=== PATIENT | male | born 1960 | race African-American/Black ===

== ENCOUNTER 2018-10-31 17:36 | Emergency (ER) | payer OTHER ==
[~2018-10-31] VITALS: Ht 185.4 cm; Wt 113.4 kg
[2018-10-31 18:37] LABS: Basophils # (auto) 0.1 uL; Basophils % (auto) 0.6 % (0.0-2.0); Eosinophils # (auto) 0.2 uL; Eosinophils % (auto) 1.8 % (0.0-7.0); Hematocrit 42.2 % (41.0-53.0); Hemoglobin 13.4 g/dL (13.5-17.5); Lymphocytes # (auto) 0.9 uL; Lymphocytes % (auto) 9.2 % (10.0-50.0); Mean Corpuscular Hemoglobin 28.3 pg (28.0-32.0); Mean Corpuscular Hgb Conc. 31.8 g/dL (32.0-36.0); Monocytes # (auto) 0.9 uL; Monocytes % (auto) 8.9 % (0.0-12.0); Neutrophils # (auto) 7.8 uL; Neutrophils % (auto) 79.5 % (37.0-80.0); Platelet Count (auto) 285 10^3/uL (140-450); Red Blood Cells 4.74 10^6/uL (4.5-5.90); Red Cell Distribution Width 12.9 % (11.8-14.3); White Blood Cell 9.8 10^3/uL (4.4-10.8)
[2018-10-31 18:57] LABS: Albumin 3.5 g/dL (3.4-5.0); Anion Gap 2 (5-15); Blood Urea Nitrogen 14 mg/dL (7-18); Calcium 8.5 mg/dL (8.5-10.1); Carbon Dioxide 30 mmol/L (21-32); Chloride 108 mmol/L (98-107); Glucose 98 mg/dL (74-106); Magnesium 2.5 mg/dL (1.6-2.6); Potassium 3.9 mmol/L (3.5-5.1); Sodium 140 mmol/L (136-145)
[2018-10-31 19:02] LABS: Alanine Aminotransferase 32 U/L (16-61); Alkaline Phosphatase 97 U/L (45-117); Aspartate Aminotransferase 30 U/L (15-37); BUN/Creatinine Ratio 7.6; Bilirubin, Total 0.6 mg/dL (0.2-1.0); GFR African American 49 mL/min; GFR Non-African American 41 mL/min
[2018-10-31 21:18] VITALS: BP 151/86
== END 2018-10-31 22:02 | disposition home or self-care (01) ==
LOC: ER 17:40
DX: I95.89 Other hypotension (principal); J44.9 Chronic obstructive pulmonary disease, unspecified
CPT/HCPCS: 36415; 70450; 71045; 80053; 83735; 84484; 85025

== ENCOUNTER 2021-04-21 01:55 | Emergency (ER) | payer MEDICAID, OTHER ==
[~2021-04-21] VITALS: Ht 182.9 cm; Wt 83.9 kg
[2021-04-21 03:39] LABS: Basophils # (auto) 0.1 10 ^3/uL (0-0.2); Basophils % (auto) 0.9 % (0.0-2.0); Eosinophils # (auto) 0 10 ^3/uL (0-0.8); Eosinophils % (auto) 0.2 % (0.0-7.0); Hematocrit 40.5 % (41.0-53.0); Hemoglobin 13.1 g/dL (13.5-17.5); Lymphocytes # (auto) 0.7 10 ^3/uL (0.4-5.4); Lymphocytes % (auto) 5.7 % (10.0-50.0); Mean Corpuscular Hemoglobin 28.8 pg (28.0-32.0); Mean Corpuscular Hgb Conc. 32.4 g/dL (32.0-36.0); Mean Corpuscular Volume 88.9 fL (80.0-100.0); Monocytes # (auto) 0.8 10 ^3/uL (0-1.3); Monocytes % (auto) 7.1 % (0.0-12.0); Neutrophils # (auto) 10.1 10 ^3/uL (1.6-8.6); Neutrophils % (auto) 86.1 % (37.0-80.0); Nucleated Red Blood Cells % 0.1 %; Red Blood Cells 4.56 10^6/uL (4.5-5.90); Red Cell Distribution Width 13.7 % (11.8-14.3); White Blood Cell 11.7 10^3/uL (4.4-10.8)
[2021-04-21 03:47] LABS: Albumin 3.5 g/dL (3.4-5.0); Calcium 8.5 mg/dL (8.5-10.1)
[2021-04-21 03:50] LABS: Bilirubin, Total 0.6 mg/dL (0.2-1.0); Total Protein 7.2 g/dL (6.4-8.2)
[2021-04-21 03:51] LABS: Potassium 3.7 mmol/L (3.5-5.1)
[2021-04-21 04:21] LABS: Urine Bacteria FEW /hpf (None Seen); Urine Blood 2+ /uL (Negative); Urine Hyaline Cast MOD /lpf (0 - 2); Urine Sperm PRESENT /hpf (None Seen); Urine WBC 9 /hpf (0 - 3)
[2021-04-21] MEDS ORDERED: cefTRIAXone 1GM/50ML D5W 50 ML IV ONE (04:30)
[2021-04-21] MEDS ORDERED: TETANUS-DIPTH-ACEL PERTUSSIS 0.5ML SYR Tdap IM ONE (04:30)
[2021-04-21] MEDS ORDERED: HYDROcodone-ACET 10/325MG TAB PO ONE (04:30)
[2021-04-21] MEDS ORDERED: KETOROLAC TROMETH 30 MG/ML 1ML VIAL IV ONE (04:30)
[2021-04-21 09:23] VITALS: BP 165/85
== END 2021-04-21 09:58 | disposition home or self-care (01) ==
LOC: EDBD 01:55 → ER 01:57
DX: S01.01XA Laceration without foreign body of scalp, initial encounter (principal); R31.9 Hematuria, unspecified; N28.9 Disorder of kidney and ureter, unspecified; R22.2 Localized swelling, mass and lump, trunk; J44.9 Chronic obstructive pulmonary disease, unspecified; I10 Essential (primary) hypertension; Y04.2XXA Assault by strike against or bumped into by another person, initial encounter; Y93.89 Activity, other specified; Y92.89 Other specified places as the place of occurrence of the external cause; Y99.8 Other external cause status
CPT/HCPCS: 36415; 70450; 71250; 72125; 74176; 80053; 81001; 85025; 90471; 90715; 93005; 96365; 96375; 99285; J0696; J1885

== ENCOUNTER 2022-06-19 07:06 | Emergency (ER) | payer MEDICAID ==
[~2022-06-19] VITALS: Ht 188 cm; Wt 117.2 kg
[2022-06-19] MEDS ORDERED: SODIUM CHLORIDE 0.9% 1,000 ML IV ONE (07:30)
[2022-06-19 07:56] LABS: Urine Bacteria NONE SEEN /hpf (None Seen); Urine WBC <1 /hpf (0 - 3)
[2022-06-19 08:12] LABS: Urine Blood Trace /uL (Negative); Urine Specific Gravity 1.015 (1.001-1.035)
[2022-06-19 08:25] LABS: Basophils # (auto) 0.1 10 ^3/uL (0-0.2); Basophils % (auto) 1.1 % (0.0-2.0); Eosinophils # (auto) 0.1 10 ^3/uL (0-0.8); Eosinophils % (auto) 2.3 % (0.0-7.0); Hematocrit 36.4 % (41.0-53.0); Hemoglobin 11.8 g/dL (13.5-17.5); Lymphocytes # (auto) 1.1 10 ^3/uL (0.4-5.4); Lymphocytes % (auto) 19.6 % (10.0-50.0); Mean Corpuscular Hgb Conc. 32.5 g/dL (32.0-36.0); Mean Corpuscular Volume 89.2 fL (80.0-100.0); Monocytes # (auto) 0.5 10 ^3/uL (0-1.3); Monocytes % (auto) 9.3 % (0.0-12.0); Neutrophils % (auto) 67.7 % (37.0-80.0); Nucleated Red Blood Cells % 0.1 %; Red Blood Cells 4.08 10^6/uL (4.5-5.90); Red Cell Distribution Width 13.4 % (11.8-14.3); White Blood Cell 5.9 10^3/uL (4.4-10.8)
[2022-06-19 09:48] LABS: Albumin 3.2 g/dL (3.4-5.0); Calcium 8.3 mg/dL (8.5-10.1); Potassium 4.4 mmol/L (3.5-5.1)
[2022-06-19 09:53] LABS: Bilirubin, Total 0.6 mg/dL (0.2-1.0); Total Protein 6.7 g/dL (6.4-8.2)
[2022-06-19] MEDS ORDERED: OLME20TA53 PO (10:58)
[2022-06-19] MEDS ORDERED: HYDR50TA15 PO (10:58)
[2022-06-19 11:30] VITALS: BP 147/87
== END 2022-06-19 11:35 | disposition home or self-care (01) ==
LOC: ER 07:06
DX: I13.0 Hypertensive heart and chronic kidney disease with heart failure and stage 1 through stage 4 chronic kidney disease, or unspecified chronic kidney disease (principal); N18.9 Chronic kidney disease, unspecified; I50.9 Heart failure, unspecified; J44.9 Chronic obstructive pulmonary disease, unspecified; F17.210 Nicotine dependence, cigarettes, uncomplicated
CPT/HCPCS: 36415; 71046; 80053; 81001; 83735; 84484; 85025; 93005

== ENCOUNTER 2022-08-15 08:50 | Day surgery (SDC) | payer MEDICAID ==
[2022-08-13 12:37] LABS: Basophils # (auto) 0 10 ^3/uL (0-0.2); Basophils % (auto) 0.7 % (0.0-2.0); Eosinophils # (auto) 0.3 10 ^3/uL (0-0.8); Eosinophils % (auto) 6.4 % (0.0-7.0); Hematocrit 38.3 % (41.0-53.0); Hemoglobin 12.5 g/dL (13.5-17.5); Lymphocytes # (auto) 1.4 10 ^3/uL (0.4-5.4); Lymphocytes % (auto) 26.2 % (10.0-50.0); Mean Corpuscular Hemoglobin 28.7 pg (28.0-32.0); Mean Corpuscular Hgb Conc. 32.6 g/dL (32.0-36.0); Mean Corpuscular Volume 87.9 fL (80.0-100.0); Monocytes # (auto) 0.6 10 ^3/uL (0-1.3); Monocytes % (auto) 10.6 % (0.0-12.0); Neutrophils % (auto) 56.1 % (37.0-80.0); Nucleated Red Blood Cells % 0.1 %; Red Blood Cells 4.36 10^6/uL (4.5-5.90); Red Cell Distribution Width 13.2 % (11.8-14.3); White Blood Cell 5.4 10^3/uL (4.4-10.8)
[2022-08-13 12:52] LABS: INR 0.88 (0.9-1.15); Partial Thromboplastin Time 26.6 sec (24.6-33.4)
[2022-08-13 13:02] LABS: Albumin 3.6 g/dL (3.4-5.0); BUN/Creatinine Ratio 11.5; Calcium 9.4 mg/dL (8.5-10.1); Potassium 4.9 mmol/L (3.5-5.1)
[2022-08-13 13:21] LABS: Bilirubin, Total 0.4 mg/dL (0.2-1.0); Total Protein 7.4 g/dL (6.4-8.2)
[~2022-08-15] VITALS: Ht 188 cm; Wt 113.4 kg
[~2022-08-15 08:50] MED LIST: CLON0.1T PO; FLUO20TA34 PO; IPRA0.00 IN; LISI-716 PO
[2022-08-15] MEDS ORDERED: SODIUM CHLORIDE LOCK 10 ML ONE (09:06)
[2022-08-15] MEDS ORDERED: diphenhdrAMINE HCL 50 MG/1 ML VL ONE (09:06)
[2022-08-15] MEDS ORDERED: fentaNYL CITRATE 100 MCG/2 ML VL ONE (09:06)
[2022-08-15] MEDS: MIDAZOLAM HCL 2MG/2ML 2ml VIAL (1mg/ml) ONE ×2 (10:00→10:05)
[2022-08-15 11:00] VITALS: BP 150/106
== END 2022-08-15 11:13 | disposition home or self-care (01) ==
LOC: GI 08:50
PROVIDERS: ATTEND Internal Medicine Gastroenterology
DX: Z12.11 Encounter for screening for malignant neoplasm of colon (principal); Z86.010 Personal history of colon polyps; K64.8 Other hemorrhoids; K63.5 Polyp of colon; I12.9 Hypertensive chronic kidney disease with stage 1 through stage 4 chronic kidney disease, or unspecified chronic kidney disease; N18.30 Chronic kidney disease, stage 3 unspecified; Z98.890 Other specified postprocedural states; Z79.899 Other long term (current) drug therapy; Z20.822 Contact with and (suspected) exposure to COVID-19
CPT/HCPCS: 36415; 45380; 80053; 85025; 85610; 85730; 88305; J1200; J2250; J3010; J7030; U0003; 99152; 99153

== ENCOUNTER 2025-07-23 08:34 | Inpatient (IN) | payer MEDICAID ==
[~2025-07-23] VITALS: Ht 188 cm; Wt 121.4 kg
[~2025-07-23 08:34] MED LIST changes: -FLUO20TA34 PO; +FLUO20TA42 PO; -LISI-716 PO; +LISI10TA34 PO
--- NOTE | 2025-07-23 09:43 | ED.PDOC ---
HPI Comments 65 y.o male with PMHX kidney failure, COPD, asthma, presents for a chief complaint of chest pain that woke him up from his sleep today. Patient reports recent illness including flu like symptom with the chest pain in which he was seen at [facility] one week ago for and was prescribed steroids. Patient discomfort that worsens with deep inspiration. Patient is on 4 liters of oxygen at home with CPAP use. Time Seen by MD: 12:08 Primary Care Provider: Anel Reviewed Notes: Nurses Notes, Medications, Allergies Allergies: Coded Allergies: NO KNOWN ALLERGIES (Unverified , 10/31/18) Home Meds Reported Medications Ipratropium-Albuterol (Ipratropium [place]/Albut) 1 Iveth Iveth, 1 IVETH IN QID, ML 08/13/22 Fluoxetine Hcl (Fluoxetine Hcl) 20 Mg Tab, 10 MG PO DAILY, TAB 08/13/22 Clonidine Hydrochloride (Clonidine Hcl) 0.1 Mg Tab, 0.1 MG PO TID, TAB 08/13/22 Lisinopril (Lisinopril) 10 Mg Tab, 10 MG PO, TAB 08/13/22 Information Source: Patient Mode of Arrival: Wheelchair Severity: Moderate Duration: Since onset Past Medical History PAST MEDICAL HISTORY: CHF, COPD, HTN Surgical History: Denies all surgeries Family History Family History: Unknown Social History Smoker: Cigarettes Alcohol: Denies ETOH Use Drugs: Denies Drug Use Lives In: Home Constitutional: denies: chills, diaphoresis, fatigue, fever, malaise, sweats, weakness, others EENTM: denies: blurred vision, double vision, ear bleeding, ear discharge, ear drainage, ear pain, ear ringing, eye pain, eye redness, hearing loss, mouth pain, mouth swelling, nasal discharge, nose bleeding, nose congestion, nose pain, photophobia, tearing, throat pain, throat swelling, voice changes, others Respiratory: denies: cough, hemoptysis, orthopnea, SOB at rest, shortness of breath, SOB with excertion, stridor, wheezing, others Cardiovascular: reports: chest pain; denies: dizzy spells, diaphoresis, Dyspnea on exertion, edema, irregular heart beat, left arm pain, lightheadedness, palpitations, PND, syncope, others Gastrointestinal: denies: abdomen distended, abdominal pain, blood streaked bowels, constipated, diarrhea, dysphagia, difficulty swallowing, hematemesis, melena, nausea, poor appetite, poor fluid intake, rectal bleeding, rectal pain, vomiting, others Genitourinary: denies: burning, dysuria, flank pain, frequency, hematuria, incontinence, penile discharge, penile sore, pain, testicle pain, testicle swelling, urgency, others Neurological: denies: dizziness, fainting, headache, left sided numbness, left sided weakness, numbness, paresthesia, pre-existing deficit, right sided numbness, right sided weakness, seizure, speech problems, tingling, tremors, weakness, others Musculoskeletal: denies: back pain, gout, joint pain, joint swelling, muscle pain, muscle stiffness, neck pain, others Integumetry: denies: bruises, change in color, change in hair/nails, dryness, laceration, lesions, lumps, rash, wounds, others Allergic/Immunocompromised: denies: Difficulty Healing, Frequent Infections, Hives, Itching, others Hematologic/Lymphatic: denies: anemia, blood clots, easy bleeding, easy bruising, swollen glands, others Endocrine: denies: excessive hunger, excessive sweating, excessive thirst, excessive urination, flushing, intolerance to cold, intolerance to heat, unexplained weight gain, unexplained weight loss, others Psychiatric: denies: anxiety, bipolar disorder, depression, hopeless, panic disorder, schizophrenia, sleepless, suicidal, others All Other Systems: Reviewed and Negative Physical Exam General Appearance: No Apparent Distress, Normal HEENT: Normal ENT Inspection, Pharynx Normal, TMs Normal Neck: Full Range of Motion, Non-Tender, Normal, Normal Inspection Respiratory: Chest Non-Tender, Lungs Clear, No Accessory Muscle Use, No Respiratory Distress, Normal Breath Sounds, Other (Diminished breath sounds bilaterally wheezing to the right lung base) Cardiovascular: No Edema, No JVD, No Murmur, No Gallop, Normal Peripheral Pulses, Regular Rate/Rhythm Breast Exam: Deferred Gastrointestinal: No Organomegaly, Non Tender, No Pulsatile Mass, Normal Bowel Sounds, Soft Genitalia: Deferred Pelvic: Deferred Rectal: Deferred Extremities: No calf tenderness, Normal capillary refill, Normal inspection, Normal range of motion, Non-tender, Swelling, Other (+1 pitting edema bilateral lower extremity) Musculoskeletal : Apperance: Normal Neurologic: Alert, No Motor Deficits, Normal Affect, Normal Mood, No Sensory Deficits Cerebellar Function: Normal Reflexes: Normal Skin: Dry, Normal Color, Warm Lymphatic: No Adenopathy EKG EKG #1: Comments EKG 1. At 8:46 a.m.. Sinus rhythm [address] changes EKG #2: Comments EKG 2. At 9:40 a.m. rate of 58 sinus rhythm no significant ST changes EKG #3: Comments EKG 3. At 11:37 a.m.. Fifty-three sinus rhythm no significant ST changes. Unchanged from previous Was a procedure done? Was a procedure done?: No CP Differential Dx Differential Diagnosis: N/A Differential Diagnosis: Angina, Chest Wall Pain, Costochondritis, Pericarditis, Pneumonia, Pulmonary Embolus X-Ray, Labs, Meds, VS Vital Signs Date Time Temp Pulse Resp B/P (MAP) Pulse Ox O2 Delivery O2 Flow Rate FiO2 07/23/25 12:14 18 95 Nasal Cannula* 2 28 07/23/25 11:37 53 07/23/25 11:16 97.6 55 15 132/68 (89) 96 97.6 07/23/25 09:40 58 07/23/25 08:46 55 Lab Test 07/23/25 11:04 07/23/25 10:00 07/23/25 08:40 Range/Units Urine Color Colorless Yellow Urine Clarity Clear Clear Urine pH 5.0 5.0-9.0 Urine Specific Lynn 1.005 1.001-1.035 Urine Protein Negative Negative Urine Ketones Negative Negative Urine Blood Negative Negative /uL Urine Nitrite Negative Negative Urine Bilirubin Negative Negative Urine Urobilinogen Normal Negative mg/dL Urine Leukocyte Esterase Negative Negative /uL Urine RBC <1 0 - 3 /hpf Urine Microscopic WBC < 1 0-3 /HPF Urine Squamous Epithelial Cells None seen <5 /hpf Urine Bacteria None seen None Seen /hpf Urine Glucose Normal Normal mg/dL Troponin I High Sensitivity 12 13 </=54 ng/L White Blood Count 8.4 4.4-10.8 10^3/uL Red Blood Count 3.99 L 4.5-5.90 10^6/uL Hemoglobin 11.1 L 13.5-17.5 g/dL Hematocrit 35.1 L 41.0-53.0 % Mean Corpuscular Volume 88.0 80.0-100.0 fL Mean Corpuscular Hemoglobin 27.9 L 28.0-32.0 pg Mean Corpuscular Hemoglobin Concent 31.7 L 32.0-36.0 g/dL Red Cell Distribution Width 13.6 11.8-14.3 % Platelet Count 289 140-450 10^3/uL Mean Platelet Volume 8.0 6.9-10.8 fL Neutrophils (%) (Auto) 70.1 37.0-80.0 % Lymphocytes (%) (Auto) 17.0 10.0-50.0 % Monocytes (%) (Auto) 7.4 0.0-12.0 % Eosinophils (%) (Auto) 4.5 0.0-7.0 % Basophils (%) (Auto) 1.0 0.0-2.0 % Neutrophils # (Auto) 5.9 1.6-8.6 10 ^3/uL Lymphocytes # (Auto) 1.4 0.4-5.4 10 ^3/uL Monocytes # (Auto) 0.6 0-1.3 10 ^3/uL Eosinophils # (Auto) 0.4 0-0.8 10 ^3/uL Basophils # (Auto) 0.1 0-0.2 10 ^3/uL Nucleated Red Blood Cells 0.0 % Sodium Level 145 136-145 mmol/L Potassium Level 4.3 3.5-5.1 mmol/L Chloride Level 108 H 98-107 mmol/L Carbon Dioxide Level 28 20-31 mmol/L Anion Gap 9 5-15 Blood Urea Nitrogen 18 9-23 mg/dL Creatinine 2.59 H 0.700-1.30 mg/dL Glomerular Filtration Rate Calc 27 >90 mL/min BUN/Creatinine Ratio 6.9 L 10.0-20.0 Serum Glucose 113 H 74-106 mg/dL Calcium Level 9.9 8.7-10.4 mg/dL Current Medications Medications (Trade) Dose Ordered Sig/Sophia Route Start Time Stop Time Status Last Admin Albuterol (Ventolin Medneb) 5 mg ONCE ONCE NEB 07/23/25 11:45 07/23/25 11:48 DC 07/23/25 12:10 Ipratropium [place] (Atrovent Medneb) 0.5 mg ONCE ONCE NEB 07/23/25 11:45 07/23/25 11:48 DC 07/23/25 12:10 65-year-old male presents here with difficulty breathing. Patient states he was at [facility] last week for same reason he was having chest pain difficulty breathing. He states was given steroids and treatment and was discharged. He states however he has not been feeling well continues to He does have a med she home he has been using but not helping. He states he is having chest discomfort pain with deep breathing denies any fever or chills. States he has continues to have a significant cough. is concerned that if they go home he will return as he has not been doing breathing. On exam he does have trace pitting edema bilateral extremities and wheezing on my examination. I have given him breathing treatments in the ER including albuterol and ipratropium as well as dexamethasone. I have ordered a CBC BMP and troponin ekg and a BNP. CBC BMP largely within normal limits. He does have elevated creatinine with a creatinine of 2.59 patient does endorse having stage 4 kidney disease. Troponin is negative. Chest x-ray is also negative. EKG x3 has been evaluated by myself which did not demonstrate any significant ST changes. BNP is ordered and is pending. At this time I am concerned about COPD exacerbation and possible new onset CHF given his new leg swelling to bilateral extremities. At this time hospitalist team has been contacted for admission. X-Ray, Labs, Meds, VS Comment [place] [address] Ph: [phone] DIAGNOSTIC IMAGING Diagnostic Imaging Report : [id number] Signed PATIENT: SKYE POND ACCT: [id number] UNIT: [id number] : 1960 LOC: ER ROOM / BED: / AGE / SEX: 65 / M ADM STATUS: REG ER SERVICE [id number] ORDERING PHYSICIAN: ZACHARY CAMARENA MD PROCEDURE(s): CXR2 - CHEST TWO VIEWS ROUTINE REASON: Chest pain ORDER NUMBER(s): [id number], ACCESSION NUMBER(s): [id number] CLINICAL INFORMATION: Chest pain. TECHNIQUE: Frontal and lateral chest radiographs were obtained. COMPARISON: XR CHEST 2 VIEWS on DOS: 07/05/25, XR CHEST 2 VIEWS on DOS: 11/10/23, CXR2 on DOS: 06/19/22 FINDINGS: Lungs: Clear. Cardiac: Heart size is within normal limits. Pulmonary vasculature: Unremarkable Mediastinum/bambi: Within normal limits. Bones: No evidence of acute osseous abnormality. Other: No other significant finding. IMPRESSION: No evidence of acute disease in the chest. ATED BY: DONAVAN GAO DO DICTATED DATE/TIME: 07/23/25 1010 SIGNED BY: DONAVAN GAO DO SIGNED DATE/TIME: 07/23/25 1010 CC: Time of 1ST Reevaluation: 12:40 Reevaluation 1ST: Unchanged Patient Education/Counseling: Diagnosis, Treatment, Prognosis Family Education/Counseling: Diagnosis, Treatment, Prognosis SEPSIS Sepsis Screen Physician Orders Electrocardigram (07/23/25 09:43) Chest Two Views Routine (07/23/25 09:43) Troponin-I Hs (07/23/25 12:43) Electrocardigram (07/23/25 10:43) Electrocardigram (07/23/25 12:43) B-Type Natriuretic Peptide (07/23/25 12:24) Vital Signs Date Time Temp Pulse Resp B/P (MAP) Pulse Ox O2 Delivery O2 Flow Rate FiO2 07/23/25 12:14 18 95 Nasal Cannula* 2 28 07/23/25 11:37 53 07/23/25 11:16 97.6 55 15 132/68 (89) 96 97.6 07/23/25 09:40 58 07/23/25 08:46 55 Laboratory Tests Test 07/23/25 08:40 White Blood Count 8.4 10^3/uL (4.4-10.8) Medications Medications Dose Ordered Sig/Sophia Route Start Time Stop Time Status Last Admin Dose Admin Albuterol 5 mg ONCE ONCE NEB 07/23/25 11:45 07/23/25 11:48 DC 07/23/25 12:10 Ipratropium [place] 0.5 mg ONCE ONCE NEB 07/23/25 11:45 07/23/25 11:48 DC 07/23/25 12:10 Departure 1 Departure Time of Disposition: 12:40 Impression: Primary Impression: COPD exacerbation Additional Impressions: Pleuritic chest pain Leg swelling Disposition: ADMITTED INPATIENT Condition: Fair Critical Care Note Critical Care Time?: No Stability Stability form required: No Heart Score Heart Score: Heart Score Response (Comments) Value History Slightly Suspicious 0 EKG Normal 0 Age 45-64 1 Risk Factors 1 or 2 risk factors 1 Troponin Normal limit 0 Total 2 I personally scribed for ZACHARY CAMARENA MD ([email or web address]) on 07/23/25 at 11:06. Electronically submitted by Elisabet Prince ([facility]). I personally scribed for ZACHARY CAMARENA MD ([email or web address]) on 07/23/25 at 12:26. Electronically submitted by Elisabet Prince ([facility] ZACHARY CAMARENA MD Jul 23, 2025 09:42
--- NOTE | 2025-07-23 10:13 | DVH ---
CLINICAL INFORMATION: Chest pain. TECHNIQUE: Frontal and lateral chest radiographs were obtained. COMPARISON: XR CHEST 2 VIEWS on DOS: 07/05/25, XR CHEST 2 VIEWS on DOS: 11/10/23, CXR2 on DOS: 06/19/22 FINDINGS: Lungs: Clear. Cardiac: Heart size is within normal limits. Pulmonary vasculature: Unremarkable Mediastinum/bambi: Within normal limits. Bones: No evidence of acute osseous abnormality. Other: No other significant finding. IMPRESSION: No evidence of acute disease in the chest.
[2025-07-23 10:16] LABS: Hematocrit 35.1 % (41.0-53.0); Hemoglobin 11.1 g/dL (13.5-17.5); Mean Corpuscular Hemoglobin 27.9 pg (28.0-32.0); Mean Corpuscular Volume 88.0 fL (80.0-100.0); Nucleated Red Blood Cells % 0.0 %
[2025-07-23 10:27] LABS: Potassium 4.3 mmol/L (3.5-5.1)
[2025-07-23 10:28] LABS: Anion Gap 9 (5-15); Calcium 9.9 mg/dL (8.7-10.4); Carbon Dioxide 28 mmol/L (20-31); Chloride 108 mmol/L (98-107); Sodium 145 mmol/L (136-145)
[2025-07-23 10:33] LABS: BUN/Creatinine Ratio 6.9 (10.0-20.0); Blood Urea Nitrogen 18 mg/dL (9-23)
[2025-07-23 10:34] LABS: Glucose 113 mg/dL (74-106)
[2025-07-23 11:28] LABS: Urine Protein, UAD Negative (Negative)
[2025-07-23] MEDS: IPRATROPIUM BROM 0.5 MG/2.5ML INH SOL NEB ONE (12:10)
[2025-07-23] MEDS: ALBUTEROL SULF 2.5 MG/0.5ML(0.5%) NEB SOLN NEB ONE (12:10)
--- NOTE | 2025-07-23 13:21 | DVHHPRES ---
History of Present Illness Resident Creating Document: ALTON SHAFFER RESIDENT History of Present Illness Avni Samaniego, a 65-year-old current smoker male with history of CKD stage IIIb/IV, CHF, dyslipidemia, COPD/asthma, allergic rhinitis, Internal hemorrhoids, and HTN presents with acute chest pain that woke him from sleep today. He reports a recent flu-like illness associated with the chest discomfort and was evaluated at [facility] one week ago, where he was prescribed steroids. He describes pleuritic features with pain worsening on deep inspiration. He uses 4 L home oxygen and CPAP at baseline and arrived to the ED by wheelchair. Denies previous history of cardiac angina or any relevant workup. PMHx: Nicotine abuse 40+ years, CKD stage IIIb/IV, CHF, dyslipidemia, ROBERTA on CPAP, Chronic hypoxic respiratory failure on Home oxygen, COPD/asthma, allergic rhinitis, Internal hemorrhoids, and HTN PSHx: Denies Family history: Family history of HTN, DM, CAD otherwise noncontributory to the hospitalization. Social history: Current smoker 40+ smoking history, rarely occasional EtOH, denies other recreation drug use. Lives at home, ADL dependent on wheelchair and home oxygen. Medications: Clonidine, Hydralazine, Amlodipine, Losartan, Simvastatin, Duloxetine, Advair 250/50 Diskus, Albuterol sulfate, Ipratropium, Matzim LA (diltiazem) 360 mg, Vitamin D 50,000 unit cap, Docusate, Feosol. 325. Review of Systems Constitutional: Yes: Fever (subjective), Chills, Malaise; No: Sweats, Weakness, Other Eyes: No: Pain, Vision change, Conjunctivae inflammation, Eyelid inflammation, Other, Redness ENT: No: Ear pain, Ear discharge, Nose pain, Nose discharge, Nose congestion, Mouth pain, Mouth swelling, Throat pain, Throat swelling, Other Respiratory: Cough, Shortness of breath, SOB with excertion, Pleuritic Pain, Sputum (yellow ), Wheezing; No: Dry, Wheezing, Hemoptysis, Other Cardiovascular: Chest Pain, Edema; No: Palpitations, Orthopnea, Paroxysmal Noc. Dyspnea, Lt Headedness, Other Gastrointestinal: Constipation; No: Nausea, Vomiting, Abdominal Pain, Diarrhea, Melena, Hematochezia, Other Genitourinary: No Dysuria, No Frequency, No Incontinence, No Hematuria, No Re tention, No Other Musculoskeletal: No: other, neck pain, shoulder pain, arm pain, back pain, hand pain, leg pain, foot pain Skin: No: Rash, Lesions, Jaundice, Bruising, Other Neurological: No: Weakness, Numbness, Incoordination, Change in speech, Confusion, Seizures, Other Allergies: Coded Allergies: NO KNOWN ALLERGIES (Unverified , 10/31/18) Exam Vital Signs Vital Signs Date Time Temp Pulse Resp B/P (MAP) Pulse Ox O2 Delivery O2 Flow Rate FiO2 07/23/25 12:47 98.0 59 20 130/75 93 98.0 07/23/25 12:14 Nasal Cannula* 2 28 General Appearance: Alert, Oriented X3, Cooperative, mild distress HEENT: Atraumatic, PERRLA, EOMI, Mucous membr. moist/pink Respiratory: Other (prolonged expiration, no wheezing but basal rales present. chest pain somewaht reproducible, typical pleuritic with deep inspiration. ) Cardiovascular: Regular rate, Normal S1, Normal S2, No murmurs Abdominal: Normal bowel sounds, Soft, No tenderness, No hepatospenomegaly, Other (bloated) Extremities: No clubbing, No cyanosis, Normal pulses, Other (b/l 1+Pitting edema, patient complains same since diagnosed with advanced kidney disease ) Skin: No rashes, No breakdown, No significant lesion Neuro: Normal speech, Strength at 5/5 X4 ext, Normal tone, Sensation intact, Cranial nerves 3-12 NL Psych/Mental Status: Mental status NL, Mood NL Labs/Xrays Labs Test 07/23/25 11:04 07/23/25 10:00 07/23/25 08:40 Range/Units Urine Color Colorless Yellow Urine Clarity Clear Clear Urine pH 5.0 5.0-9.0 Urine Specific [place] 1.005 1.001-1.035 Urine Protein Negative Negative Urine Ketones Negative Negative Urine Blood Negative Negative /uL Urine Nitrite Negative Negative Urine Bilirubin Negative Negative Urine Urobilinogen Normal Negative mg/dL Urine Leukocyte Esterase Negative Negative /uL Urine RBC <1 0 - 3 /hpf Urine Microscopic WBC < 1 0-3 /HPF Urine Squamous Epithelial Cells None seen <5 /hpf Urine Bacteria None seen None Seen /hpf Urine Glucose Normal Normal mg/dL Troponin I High Sensitivity 12 </=54 ng/L White Blood Count 8.4 4.4-10.8 10^3/uL Red Blood Count 3.99 L 4.5-5.90 10^6/uL Hemoglobin 11.1 L 13.5-17.5 g/dL Hematocrit 35.1 L 41.0-53.0 % Mean Corpuscular Volume 88.0 80.0-100.0 fL Mean Corpuscular Hemoglobin 27.9 L 28.0-32.0 pg Mean Corpuscular Hemoglobin Concent 31.7 L 32.0-36.0 g/dL Red Cell Distribution Width 13.6 11.8-14.3 % Platelet Count 289 140-450 10^3/uL Mean Platelet Volume 8.0 6.9-10.8 fL Neutrophils (%) (Auto) 70.1 37.0-80.0 % Lymphocytes (%) (Auto) 17.0 10.0-50.0 % Monocytes (%) (Auto) 7.4 0.0-12.0 % Eosinophils (%) (Auto) 4.5 0.0-7.0 % Basophils (%) (Auto) 1.0 0.0-2.0 % Neutrophils # (Auto) 5.9 1.6-8.6 10 ^3/uL Lymphocytes # (Auto) 1.4 0.4-5.4 10 ^3/uL Monocytes # (Auto) 0.6 0-1.3 10 ^3/uL Eosinophils # (Auto) 0.4 0-0.8 10 ^3/uL Basophils # (Auto) 0.1 0-0.2 10 ^3/uL Nucleated Red Blood Cells 0.0 % Sodium Level 145 136-145 mmol/L Potassium Level 4.3 3.5-5.1 mmol/L Chloride Level 108 H 98-107 mmol/L Carbon Dioxide Level 28 20-31 mmol/L Anion Gap 9 5-15 Blood Urea Nitrogen 18 9-23 mg/dL Creatinine 2.59 H 0.700-1.30 mg/dL Glomerular Filtration Rate Calc 27 >90 mL/min BUN/Creatinine Ratio 6.9 L 10.0-20.0 Serum Glucose 113 H 74-106 mg/dL Calcium Level 9.9 8.7-10.4 mg/dL SEPSIS Sepsis Screen Date sepsis recognized/suspect: Jul 23, 2025 Time Sepsis recognized/suspect: 08 Recent Procedure: No On Antibiotic Therapy: No Respiratory Rate >20: No Heart Rate >90: No Temp<36 C (96.8 F) or >38.3 C: No SBP <90 or MAP <65 mmHG: No New Acute Mental Status Change: No Is the patient on CPAP, BIPAP,: No Physician Orders Electrocardigram (07/23/25 09:43) Chest Two Views Routine (07/23/25 09:43) Troponin-I Hs (07/23/25 12:43) Electrocardigram (07/23/25 10:43) Electrocardigram (07/23/25 12:43) B-Type Natriuretic Peptide (07/23/25 12:24) Admit (07/23/25 13:18) Allergies (07/23/25 13:18) Code Status (07/23/25 13:18) Oxygen Per Hour (07/23/25 13:18) Hydrocodone-Acet 5/325mg Tab (Orange 5/32 (07/23/25 13:30) Docusate Sodium Capsule (Colace Capsule) (07/23/25 13:30) Complete Blood Count (07/24/25 04:00) Comprehensive Metabolic Panel (07/24/25 04:00) Npo (Nothing By Mouth) Diet (07/23/25 Lunch) Pt Request For Service (07/23/25 13:18) * Swallow Request (07/23/25 13:18) Echo 2d Mode Cardiac Dop (07/23/25 13:18) Condition: Serious (07/23/25 13:18) Acetaminophen Tablet (Tylenol Tablet) (07/23/25 13:30) Bedrest With Bathroom Privileg (07/23/25 13:18) Morphine Sulfate Injection (07/23/25 13:30) Nitroglycerin Sublingual (Ntrostat Subli (07/23/25 13:30) Morphine Sulfate Injection (07/23/25 13:30) Oxygen By Nasal Cannula (07/23/25 13:18) Stat Ekg For Chest Pain (07/23/25 13:18) Notify Md Of Changes From Base (07/23/25 13:18) Dessert Cup Machine Feeder For 24 Hours (07/23/25 13:18) Emergency Dysrhythmia Protocol (07/23/25 13:18) Rhythm Strips Once Every Shift (07/23/25 13:18) Vital Signs Date Time Temp Pulse Resp B/P (MAP) Pulse Ox O2 Delivery O2 Flow Rate FiO2 07/23/25 12:47 98.0 59 20 130/75 93 98.0 07/23/25 12:14 18 95 Nasal Cannula* 2 28 07/23/25 11:37 53 07/23/25 11:16 97.6 55 15 132/68 (89) 96 97.6 07/23/25 09:40 58 07/23/25 08:46 55 Laboratory Tests Test 07/23/25 08:40 White Blood Count 8.4 10^3/uL (4.4-10.8) Medications Medications Dose Ordered Sig/Sophia Route Start Time Stop Time Status Last Admin Dose Admin Albuterol 5 mg ONCE ONCE NEB 07/23/25 11:45 07/23/25 11:48 DC 07/23/25 12:10 5 MG Ipratropium [place] 0.5 mg ONCE ONCE NEB 07/23/25 11:45 07/23/25 11:48 DC 07/23/25 12:10 0.5 MG Assessment/Plan Assessment/Plan Acute medical conditions on Presentation: #acute chest pain concerning for unstable angina: trops, EKG unremarkable STEMI / NSTEMI ruled out. pleurisy, PE, aortic dissection to rule out. Echo to check. #Acute on chronic hypoxic respiratory failure: Likely due to COPD and CHF exacerbation. 4L at presentation, wean as tolerated, SPO2 around 92% #Likely COPD exacerbation: Viral vs infectious trigger, check secondary causers, scheduled nebs. Sputum culture and other infectious causes to evaluate. #Community acquired pneumonia: gram +ve/-ve/atypical, could be viral or superimposed to viral, sputum culture, trend cbc. viral panel to check. antib iotics coverage CXR non specific. Other chronic conditions treated: #Nicotine abuse 40+ years, active smoker: >11 minute smoking cessation counseling completed. Nicotine patch 14mg continue. #CKD stage IIIb/IV: Avoid nephrotoxins, patient reports urine output, close intake output check. #CHF, HFpEF: BNP , IV diuresis and Echo to check. mildly hypervolumic. #dyslipidemia: on simvastatin continue outpatient [facility]. #ROBERTA on CPAP: use at night as per RT. #Chronic hypoxic respiratory failure on Home oxygen, upto 2-3 liters at [facility]. #known COPD/asthma: Advair 250/50 Diskus, Albuterol sulfate, Ipratropium, home medications. continue nebs. #allergic rhinitis: home nasal sprays can continue at discharge, as needed nasal spray. #Internal hemorrhoids: previously noted in Colonoscopy, avoid constipation, docu sate, high fiber diet. #Essential HTN: Clonidine, Hydralazine, Amlodipine, Losartan, target blood pressure 140/90. restart medications when necessary. #Peripheral neuropathy: Duloxetine, as needed multimodal pain management. Avoid NSAIDs. #Chronic vitamin D deficiency: Vitamin D 50,000 unit cap, weekly continue. #Chronic iron deficiency: continue Feosol. 325 at discharge, use more fibers, laxatives. #Grade I obesity: BMI 33.7, weight loss and lifestyle/dietary counseling done. PUD prophylaxis: protonix 40mg daily DVT prophylaxis: Lovenox 40mg/brisk movement. Barriers to discharge: Medical diagnosis and management in progress. PT and SW consult as needed. PCP: Dr. Dillard Specialist Relevant To Admission: Nephrology (Follows Dr. Pro), will consult if urine output scanty <0.5ml/kg/hour. Case discussed with Dr. Hassan. Code Status: Full Code. Discussion for goals of care and care plan needed total 29 minutes bedside. Patient agreed to the in hospital treatment at telemetry floor. Plan discussed with: Patient, Other (family) My Orders Orders - ALTON SHAFFER RESIDENT Procedure Category Date Status Time Admit ADMIT 07/23/25 Transmitted 13:18 Allergies BHARATH 07/23/25 Transmitted 13:18 Code Status CODE 07/23/25 Transmitted 13:18 Oxygen Per Hour RT 07/23/25 Transmitted 13:18 Hydrocodone-Acet PHA 07/23/25 Transmitted 5/325mg Tab (Orange 13:30 Docusate Sodium PHA 07/23/25 Transmitted Capsule (Colace 13:30 Complete Blood Count LAB 07/24/25 Verified 04:00 Comprehensive LAB 07/24/25 Verified Metabolic Panel 04:00 Npo (Nothing By DIET 07/23/25 Transmitted Mouth) Diet Lunch Pt Request For Service PT 07/23/25 Transmitted 13:18 * Swallow Request ST 07/23/25 Transmitted 13:18 Echo 2d Mode Cardiac US 07/23/25 Transmitted DOP 13:18 Condition: Serious [facility] 07/23/25 Transmitted 13:18 Acetaminophen Tablet [facility] 07/23/25 Transmitted (Tylenol Tablet) 13:30 Bedrest With Bathroom [facility] 07/23/25 Transmitted Privileg 13:18 Morphine Sulfate [facility] 07/23/25 Transmitted Injection 13:30 Nitroglycerin [facility] 07/23/25 Transmitted Sublingual (Ntrostat 13:30 Morphine Sulfate [facility] 07/23/25 Transmitted Injection 13:30 Oxygen By Nasal RT 07/23/25 Transmitted Cannula 13:18 Stat Ekg For Chest [facility] 07/23/25 Transmitted Pain 13:18 Notify Md Of Changes [facility] 07/23/25 Transmitted From Base 13:18 Dessert Cup Machine Feeder For [facility] 07/23/25 Transmitted 24 Hours 13:18 Emergency Dysrhythmia [facility] 07/23/25 Transmitted Protocol 13:18 Rhythm Strips Once [facility] 07/23/25 Transmitted Every Shift 13:18 Date of Service: Jul 23, 2025 Billing Provider: TAWANDA HASSAN MD Common Visit Codes: [id number] INP/OBS CARE (HIGH) Secondary Visit Codes: [id number] CARE PLAN 30 MINUTES ALTON SHAFFER RESIDENT Jul 23, 2025 13:21
[2025-07-23] MEDS ORDERED: NITROGLYCERIN 0.4 MG SL TAB SL PRN (13:30)
[2025-07-23] MEDS ORDERED: DOCUSATE SOD 100 MG CAP PO PRN (13:30)
[2025-07-23] MEDS ORDERED: MORPHINE SULFATE INJ 2 MG/ml SYRG IV PRN (13:30)
[2025-07-23] MEDS: MORPHINE SULFATE INJ 2 MG/ml SYRG IV PRN (19:43)
[2025-07-23 20:00] VITALS: PULSE 70
[2025-07-23] MEDS: MORPHINE SULFATE 4 MG/ML SYR/VIAL ONE (20:24)
[2025-07-23] MEDS: ONDANSETRON HCL 4 MG/2 ML VIAL ONE (20:25)
[2025-07-23] MEDS: HYDROcodone-ACET 5/325MG TAB PO PRN (21:16)
[2025-07-23] MEDS: ACETAMINOPHEN 325 MG TAB PO PRN (21:16)
[2025-07-24] VITALS (20 sets, daily range): BP systolic 113–161; BP diastolic 73–98; PULSE 58–131; RESP 16–26; TEMP 97.3–98.9; O2SAT 90–100
[2025-07-24] MEDS ORDERED: DOCU-265 PO (03:26)
[2025-07-24] MEDS ORDERED: LOSA-535 PO (03:26)
[2025-07-24] MEDS ORDERED: AMLO1TAB23 PO (03:26)
[2025-07-24] MEDS ORDERED: SIMV40TA18 PO (03:26)
[2025-07-24] MEDS ORDERED: HYDR50TA47 PO (03:26)
[2025-07-24] MEDS ORDERED: ERGO1CAP12 PO (03:26)
[2025-07-24] MEDS: IPRATROPIUM BROM 0.5 MG/2.5ML INH SOL ONE (04:09)
[2025-07-24] MEDS: ALBUTEROL SULF 2.5 MG/0.5ML(0.5%) NEB SOLN ONE (04:10)
[2025-07-24] MEDS ORDERED: IPRATROPIUM BROM 0.5 MG/2.5ML INH SOL NEB PRN (04:15)
[2025-07-24] MEDS ORDERED: ALBUTEROL SULF 2.5 MG/0.5ML(0.5%) NEB SOLN NEB PRN (04:15)
[2025-07-24] MEDS: IPRATROPIUM BROM 0.5 MG/2.5ML INH SOL NEB SCH (07:20)
[2025-07-24] MEDS: LEVALBUTEROL HCL 1.25 MG/3 ML NEB NEB SCH (07:20)
[2025-07-24 07:21] LABS: Hematocrit 34.6 % (41.0-53.0); Hemoglobin 10.8 g/dL (13.5-17.5); Mean Corpuscular Hemoglobin 27.5 pg (28.0-32.0); Mean Corpuscular Volume 88.4 fL (80.0-100.0); Nucleated Red Blood Cells % 0.0 %
[2025-07-24 07:26] LABS: Alanine Aminotransferase 20 U/L (7-40); Albumin 4.4 g/dL (3.2-4.8); Alkaline Phosphatase 102 U/L (46-116); Anion Gap 7 (5-15); BUN/Creatinine Ratio 7.4 (10.0-20.0); Bilirubin, Total 0.3 mg/dL (0.2-1.0); Blood Urea Nitrogen 19 mg/dL (9-23); Calcium 9.2 mg/dL (8.7-10.4); Carbon Dioxide 26 mmol/L (20-31); Sodium 141 mmol/L (136-145); Total Protein 7.3 g/dL (5.7-8.2)
[2025-07-24 07:30] LABS: Chloride 108 mmol/L (98-107); Glucose 127 mg/dL (74-106)
[2025-07-24 07:31] LABS: Total Iron Binding Capacity 271.0 ug/dL (250-425)
[2025-07-24 07:32] LABS: Iron 36.0 ug/dL (65-175); Potassium 5.9 mmol/L (3.5-5.1)
[2025-07-24] MEDS: InsuLIN REG 1unit/0.01ml Soln (100units/ml) IV ONE ×2 (08:15→08:59)
[2025-07-24] MEDS: SODIUM ZIRCONIUM CYCL 10 GM PAK PO ONE ×2 (08:15→08:46)
[2025-07-24] MEDS: DEXTROSE (50%) 50ML SYRG IV ONE ×2 (08:15→08:46)
[2025-07-24] MEDS: predniSONE 20 MG TAB PO SCH (08:31)
[2025-07-24] MEDS: AZITHROMYCIN 500MG/250ML 250 ML IV SCH (08:31)
[2025-07-24] MEDS: FUROSEMIDE 40 MG/4 ML VIAL IV SCH (08:38)
[2025-07-24] MEDS: ALBUTEROL SULF 2.5 MG/0.5ML(0.5%) NEB SOLN NEB ONE (08:40)
[2025-07-24] MEDS: SODIUM BICARB 8.4% 50Meq/50ml SYR INJ IV ONE (09:28)
[2025-07-24] MEDS: NICOTINE 14 MG/24HR TOPICAL PATCH TD ONE (10:15)
[2025-07-24] MEDS ORDERED: POM (10:36)
[2025-07-24] MEDS ORDERED: [UNRECOGNIZED DRUG - CODE] PO (10:36)
[2025-07-24] MEDS ORDERED: CHOL20007 PO (10:36)
--- NOTE | 2025-07-24 12:11 | DVHSR ---
APPROVED REPORT EXAM: Two-dimensional and M-mode echocardiogram with Doppler and color Doppler. Blood Pressure: 155/93 mmHg INDICATION Rule out structural heart disease RISK FACTORS Obesity: Height: 6'2", Weight: 262 DIMENSIONS LVDd 5.1 (3.8-5.7cm) LA (2D) 4.4 (1.9-4.0cm) Aortic Root 4.2 (2.0-3.7cm) LVDs 3.1 (2.5-4.0cm) LA (MM) (1.9-4.0cm) Aortic Cusp Exc 2.2 (1.5-2.0cm) EF (%) 69.0 (55-70%) Rt. Atrium 4.0 (1.9-4.0cm) Asc. Aorta cm IVSd 1.3 (0.7-1.1cm) RV (D) 3.9 (1.8-2.4cm) PWd 1.3 (0.7-1.1cm) Mitral Valve Mitral Mitral Stenosis E wave 1.17m/s MV Mean GR. mmHg A wave 1.25m/s MV Peak GR. mmHg E/A ratio 0.9 2D MVA cm2 DECEL Time 185ms PRESS 1/2 Time ms Aortic Valve Aortic Valve Aortic Stenosis V1 1.53m/s AO Mean GR. 11mmHg V2 2.26m/s AO Peak GR. 20mmHg LVOT Diameter 2.3 (1.8-2.4cm) Doppler DEACON 2.81cm2 Other Information Technically limited study due to body habitus. Conclusion 1)Hyperdynamic left ventricular systolic function with estimated ejection fraction>70%. 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 Suggest a cardiac MRI for further evaluation if clinically indicated 2)Normal right ventricle size and function 3)Biatrial dilatation 4)Mild mitral regurgitation 5)Mildly dilated aortic root with estimated diameter of 4.2 cm
--- NOTE | 2025-07-24 12:14 | DVHPNRES ---
Progress Note Date Seen: Jul 24, 2025 Resident Creating Document: TASHA GOODE RESIDENT Medical Necessity Reason Pt with a Central, PICC or Fol: No Subjective Review of Systems Patient is a 65-year-old male with past medical history of polycystic kidney disease, CKD stage 4, COPD/asthma who uses 4 L oxygen at home, hypertension, CHF, obstructive sleep apnea on CPAP, allergic rhinitis, internal hemorrhoids who came to the hospital with chief complaints of chest pain which was 10/10 in intensity, substernal, intermittent , nonradiating, states that increased with walking and decreased with rest, which woke him up from sleep yesterday. patient also describes pleuritic features with the pain worsening on deep inspiration. Patient also states he had recent flu-like illness with chest discomfort and was seen in [facility] 1 week ago where he was prescribed steroids. He denies any previous cardiac exam, cardiology workup. surgical history: Denies Family history: Family history of hypertension, diabetes, [place], heart failure, PSKD in family personal history: Patient states his last cigarette was 2 weeks ago and smoked 1 pack per day since 20 years. , occasional alcohol drinker, denies other drug use. Lives with: Zakiya PCP: Dr. Dillard Nephrology: Follows Dr. Pro Medications: Clonidine, Hydralazine, Amlodipine, Losartan, Simvastatin, Duloxetine, Advair 250/50 Diskus, Albuterol sulfate, Ipratropium, Matzim LA (diltiazem) 360 mg, Vitamin D 50,000 unit cap, Docusate, Feosol. 325. 07/24/2025: Patient seen at bedside. Patient is on 2 L oxygen, does not complain of any chest pain, shortness of the, palpitations, nausea, vomiting, fever, chills. Patient did complain of chest pain in the morning for which EKG was done and did not show any changes. Patient states the pain is coming and going. And patient has discomfort in the right flank. Patient might be having hyperkalemia due to BAO/ARb. so stopped. Patient also complaining of right flank pain for which abdominal CT without contrast ordered. Objective vital signs Vital Sign Date Time Temp Pulse Resp B/P (MAP) Pulse Ox O2 Delivery O2 Flow Rate FiO2 07/24/25 11:39 88 16 99 07/24/25 11:31 Nasal Cannula 2.0 12/7/25 11:31 28 07/24/25 09:00 98.9 130/86 (101) 98.9 medications Current Medications Medications Dose Ordered Sig/Sophia Route Start Time Stop Time Status Last Admin Dose Admin Acetaminophen/ Hydrocodone Bitart 1 tab Q4HP PRN PO 07/23/25 13:30 07/23/25 21:16 1 TAB Docusate Sodium 100 mg BIDPRN PRN PO 07/23/25 13:30 Acetaminophen 650 mg Q6HP PRN PO 07/23/25 13:30 07/23/25 21:16 650 MG Morphine Sulfate 2 mg Q4HPRN PRN IV 07/23/25 13:30 07/23/25 19:43 2 MG Nitroglycerin 0.4 mg Q5MINP PRN SL 07/23/25 13:30 Morphine Sulfate 2 mg Q30M PRN IV 07/23/25 13:30 Ipratropium [place] 0.5 mg Q4HPRN PRN NEB 07/24/25 04:15 Levalbuterol HCl 1.25 mg Q6HR NEB 07/24/25 06:00 07/24/25 11:31 1.25 MG Ipratropium [place] 0.5 mg Q6HR NEB 07/24/25 06:00 07/24/25 11:31 0.5 MG Prednisone 40 mg DAILY PO 07/24/25 10:00 07/24/25 08:31 40 MG Furosemide 40 mg DAILY IV 07/24/25 10:00 07/24/25 08:38 40 MG Azithromycin 250 ml @ 125 mls/hr DAILY IV 07/24/25 10:00 07/24/25 08:31 125 MLS/HR Nicotine 1 patch DAILY TD 07/25/25 10:00 Enoxaparin Sodium 40 mg DAILY SC 07/24/25 10:15 Pantoprazole Sodium 40 mg DAILY@0600 PO 07/25/25 06:00 Examination General: Patient alert and oriented in person, place and time. Patient following commands. HEENT: Normocephalic, atraumatic, moist mucous membranes Respiratory/pulmonary: pleuritic chest pain with deep inspiration Cardiovascular: Normal heart sounds S1 and S2 with no associated murmurs Abdomen: Right flank pain Extremities: There is no peripheral edema present at the lower extremities. Peripheral Pulses: 3+ Radial (R). 3+ Radial (L). 3+ Dorsalis pedis (R). 3+ Dorsalis pedis(L) Skin: No rashes or pruritus, there is no sacral edema present at this time. Neurological: Intact cranial nerves with no focal neurologic deficits laboratory and microbiology Laboratory Tests 07/24/25 05:47 Test 07/24/25 05:47 Range/Units Serum Glucose 127 H 74-106 mg/dL Problem List/Assessment/Plan Problem List/Assessment/Plan #Acute chest pain likely unstable angina - trops negative - EKG unremarkable - Echo ordered, showed Hyperdynamic left ventricular systolic function with estimated ejection fraction>70%. There is a LV hypertrophy - cardiology consult #Acute on chronic hypoxic respiratory failure: #Likely COPD exacerbation: #Community acquired pneumonia likely Gram-positive, Gram-negative - Likely due to COPD and CHF exacerbation. - albuterol, ipratropium med nebs - oxygen as needed - COVID, influenza - sputum culture, - IV azithromycin, - prednisone 40 mg p.o. daily # Polycystic kidney disease # CKD stage IIIB/IV - resume home meds - strict I&O - avoid nephrotoxic drugs # ROBERTA on CPAP # history of COPD /asthma - CPAP at night - albuterol, ipratropium med nebs # hypertension - resume home meds # iron-deficiency anemia - continue home meds # nicotine abuse disorder - patient counseled on cessation of smoking for 18 minutes #Grade I obesity BMI 33.7 - patient counseled on diet, exercise, lifestyle modifications for 18 minutes PPI prophylaxis: Protonix DVT prophylaxis: Lovenox Goals of care addressed with the patient for more than 27 minutes: Full code status Case discussed with Dr. Ceron , patient and nurse Plan discussed with: Patient Visit Coding STANDARD RES Billing Provider: ESPERANZA CERON MD Date of Service if different f: Jul 24, 2025 Common Visit Codes: [id number] INP/OBS CARE(HIGH) TASHA GOODE RESIDENT Jul 24, 2025 12:14
[2025-07-24 13:11] LABS: COVID19 ANTIGEN SOFIA FIA NEGATIVE (NEGATIVE)
--- NOTE | 2025-07-24 13:30 | ECG ---
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
--- NOTE | 2025-07-24 13:31 | ECG ---
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
--- NOTE | 2025-07-24 13:31 | ECG ---
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
[2025-07-24] MEDS: PANTOPRAZOLE 40 MG TAB PO ONE (14:51)
[2025-07-24] MEDS: ENOXAPARIN SOD 40 MG/0.4 ML SYRINGE SC SCH (14:52)
[2025-07-24] MEDS ORDERED: NITROGLYCERIN 0.4 MG SL TAB SL PRN (16:00)
[2025-07-24] MEDS ORDERED: ENOXAPARIN SOD 40 MG/0.4 ML SYRINGE SC ONE (16:00)
[2025-07-24] MEDS: ATORVASTATIN 20 MG TAB PO SCH (21:13)
[2025-07-25] VITALS (18 sets, daily range): BP systolic 140–151; BP diastolic 84–91; PULSE 67–105; RESP 16–20; TEMP 97.4–98.6; O2SAT 90–99
[2025-07-25] MEDS: PANTOPRAZOLE 40 MG TAB PO SCH (05:15)
[2025-07-25 06:01] LABS: Hematocrit 30.4 % (41.0-53.0); Hemoglobin 9.7 g/dL (13.5-17.5); Mean Corpuscular Hemoglobin 28.0 pg (28.0-32.0); Mean Corpuscular Volume 87.8 fL (80.0-100.0); Nucleated Red Blood Cells % 0.0 %
[2025-07-25 06:17] LABS: Alanine Aminotransferase 18 U/L (7-40); Alkaline Phosphatase 83 U/L (46-116); Anion Gap 8 (5-15); BUN/Creatinine Ratio 11.5 (10.0-20.0); Calcium 8.8 mg/dL (8.7-10.4); Carbon Dioxide 28 mmol/L (20-31); Chloride 106 mmol/L (98-107); Potassium 4.7 mmol/L (3.5-5.1); Sodium 142 mmol/L (136-145)
[2025-07-25 06:18] LABS: Blood Urea Nitrogen 28 mg/dL (9-23); Glucose 115 mg/dL (74-106); Total Protein 6.6 g/dL (5.7-8.2)
[2025-07-25 06:19] LABS: Albumin 3.9 g/dL (3.2-4.8); Bilirubin, Total 0.3 mg/dL (0.2-1.0)
--- NOTE | 2025-07-25 06:40 | ECG ---
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
[2025-07-25] MEDS: CHOLECALCIFEROL (VITD3) 1,000UNIT=25mCg TAB PO SCH (09:59)
[2025-07-25] MEDS ORDERED: LOSARTAN POTASSIUM 50 MG TAB PO SCH (10:00)
[2025-07-25] MEDS ORDERED: ENOXAPARIN SOD 40 MG/0.4 ML SYRINGE SC SCH (10:00)
[2025-07-25] MEDS: NICOTINE 14 MG/24HR TOPICAL PATCH TD SCH (10:00)
--- NOTE | 2025-07-25 11:02 | DVH ---
Exam: CT CT AB PEL WO CON-NO ORAL OR IV History: r/o renal stones. Pain. Comparison Study: CT ABDOMEN PELVIS WITHOUT on DOS: 11/10/23, CT ABD PELVIS WO CONTRAST on DOS: 08/16/22, CT CHEST ABD PELVIS WO CONTRAS on DOS: 04/21/21 Technique: Multidetector spiral CT of the abdomen was performed from lung bases to pubic symphysis. Imaging was performed without IV contrast. Axial, coronal and sagittal multiplanar reformats were obtained from the axial data set by the technologist. Radiation Dose : 1. Abdomen/Pelvis: CTDIvol 26.09 mGy, DLP 1617.87 mGy*cm. Findings: Evaluation of solid organs is limited due to lack of intravenous contrast use. Lung Bases: No acute or significant lung base finding. Normal heart size. No pleural or pericardial effusion. Liver: The liver is normal in size. No focal lesions. Gallbladder and Biliary Tree: Unremarkable Spleen: Unremarkable Pancreas: The pancreas is grossly normal in appearance. Adrenal Glands: Unremarkable Kidneys: Bilateral renal cortical cysts. No stones. Left ureter is mildly dilated with no obstructing calculus seen. This appears unchanged. Bladder: Grossly unremarkable for degree of distention. Bowel: The stomach is grossly normal in appearance. Small bowel and colon are normal in caliber and distribution. The appendix is not visualized; however, no secondary findings of acute appendicitis identified. Ascites: Absent Lymphadenopathy: No mesenteric, retroperitoneal or periportal lymphadenopathy. Abdominal Wall and Mesentery: Unremarkable. Vasculature: The visualized abdominal aorta is normal in size and caliber. Evaluation of abdominal and pelvic vessels is limited due to lack of intravenous contrast. Pelvic Organs: Unremarkable Musculoskeletal: No aggressive focal bony lesions, acute fractures or dislocation. IMPRESSION: Stable mild prominence of the left ureter with no obstructing stone or other lesion seen. Radiation optimization: All CT scans at this facility use at least one of these dose optimization techniques: automated exposure control mA and/or kV adjustment per patient size (includes targeted exams where dose is matched to clinical indication) or iterative reconstruction.
--- NOTE | 2025-07-25 14:58 | DVHPNRES ---
Progress Note Date Seen: Jul 25, 2025 Resident Creating Document: TASHA GOODE RESIDENT Medical Necessity Reason Pt with a Central, PICC or Fol: No Subjective Review of Systems Patient is a 65-year-old male with past medical history of polycystic kidney disease, CKD stage 4, COPD/asthma who uses 4 L oxygen at home, hypertension, CHF, obstructive sleep apnea on CPAP, allergic rhinitis, internal hemorrhoids who came to the hospital with chief complaints of chest pain which was 10/10 in intensity, substernal, intermittent , nonradiating, states that increased with walking and decreased with rest, which woke him up from sleep yesterday. patient also describes pleuritic features with the pain worsening on deep inspiration. Patient also states he had recent flu-like illness with chest discomfort and was seen in [facility] 1 week ago where he was prescribed steroids. He denies any previous cardiac exam, cardiology workup. surgical history: Denies Family history: Family history of hypertension, diabetes, [place], heart failure, PSKD in family personal history: Patient states his last cigarette was 2 weeks ago and smoked 1 pack per day since 20 years. , occasional alcohol drinker, denies other drug use. Lives with: Zakiya PCP: Dr. Dillard Nephrology: Follows Dr. Pro Medications: Clonidine, Hydralazine, Amlodipine, Losartan, Simvastatin, Duloxetine, Advair 250/50 Diskus, Albuterol sulfate, Ipratropium, Matzim LA (diltiazem) 360 mg, Vitamin D 50,000 unit cap, Docusate, Feosol. 325. 07/24/2025: Patient seen at bedside. Patient is on 2 L oxygen, does not complain of any chest pain, shortness of the, palpitations, nausea, vomiting, fever, chills. Patient did complain of chest pain in the morning for which EKG was done and did not show any changes. Patient states the pain is coming and going. And patient has discomfort in the right flank. Patient might be having hyperkalemia due to BAO/ARb. so stopped. Patient also complaining of right flank pain for which abdominal CT without contrast ordered. 07/25/2025: Patient seen at bedside. Patient is on 2 L oxygen, denies any chest pain, shortness of breath, nausea, vomiting, chills fever, chills. CT abdomen showed Stable mild prominence of the left ureter with no obstructing stone or other lesion seen. patient does not complain of chest pain with inspiration. Objective vital signs Vital Sign Date Time Temp Pulse Resp B/P (MAP) Pulse Ox O2 Delivery O2 Flow Rate FiO2 07/25/25 13:00 97.4 71 18 146/90 (108) 95 97.4 07/25/25 11:28 Nasal Cannula 2.0 07/25/25 11:28 28 Total Intake and Output 07/24/25 07/24/25 07/25/25 15:00 23:00 07:00 Intake Total 250 ml 300 ml 50 ml Balance 250 ml 300 ml 50 ml medications Current Medications Medications Dose Ordered Sig/Sophia Route Start Time Stop Time Status Last Admin Dose Admin Acetaminophen/ Hydrocodone Bitart 1 tab Q4HP PRN PO 07/23/25 13:30 07/25/25 10:09 1 TAB Acetaminophen 650 mg Q6HP PRN PO 07/23/25 13:30 07/23/25 21:16 650 MG Levalbuterol HCl 1.25 mg Q6HR NEB 07/24/25 06:00 07/25/25 11:28 1.25 MG Ipratropium [place] 0.5 mg Q6HR NEB 07/24/25 06:00 07/25/25 11:28 0.5 MG Prednisone 40 mg DAILY PO 07/24/25 10:00 07/25/25 09:59 40 MG Furosemide 40 mg DAILY IV 07/24/25 10:00 07/25/25 10:00 40 MG Nicotine 1 patch DAILY TD 07/25/25 10:00 Enoxaparin Sodium 40 mg DAILY SC 07/24/25 10:15 07/25/25 10:01 40 MG Pantoprazole Sodium 40 mg DAILY@0600 PO 07/25/25 06:00 07/25/25 05:15 40 MG Amlodipine Besylate 10 mg DAILY PO 07/25/25 10:00 07/25/25 09:59 10 MG Atorvastatin Calcium 40 mg HS PO 07/24/25 22:00 07/24/25 21:13 40 MG Nitroglycerin 0.4 mg Q5MINP PRN SL 07/24/25 16:00 Azithromycin 500 mg DAILY PO 07/26/25 10:00 Patient Own Medication 1 BID@0700,1500 PO 07/25/25 15:00 Examination General: Patient alert and oriented in person, place and time. Patient following commands. HEENT: Normocephalic, atraumatic, moist mucous membranes Respiratory/pulmonary: pleuritic chest pain with deep inspiration Cardiovascular: Normal heart sounds S1 and S2 with no associated murmurs Abdomen: Back tenderness. Extremities: There is no peripheral edema present at the lower extremities. Peripheral Pulses: 3+ Radial (R). 3+ Radial (L). 3+ Dorsalis pedis (R). 3+ Dorsalis pedis(L) Skin: No rashes or pruritus, there is no sacral edema present at this time. Neurological: Intact cranial nerves with no focal neurologic deficits laboratory and microbiology Laboratory Tests 07/25/25 02:52 Test 07/25/25 02:52 Range/Units Serum Glucose 115 H 74-106 mg/dL Problem List/Assessment/Plan Problem List/Assessment/Plan #Acute chest pain likely unstable angina - trops negative - EKG unremarkable - Echo ordered, showed Hyperdynamic left ventricular systolic function with estimated ejection fraction>70%. There is a LV hypertrophy - cardiology consult #Acute on chronic hypoxic respiratory failure: #Likely COPD exacerbation: #Community acquired pneumonia likely Gram-positive, Gram-negative - Likely due to COPD and CHF exacerbation. - albuterol, ipratropium med nebs - oxygen as needed - COVID, influenza - sputum culture, - IV azithromycin, - prednisone 40 mg p.o. daily # Polycystic kidney disease # CKD stage IIIB/IV - resume home meds - strict I&O - avoid nephrotoxic drugs - CT abdomen showed Stable mild prominence of the left ureter with no obstructing stone or other lesion seen. patient does not complain of chest pain with inspiration. # ROBERTA on CPAP # history of COPD /asthma - CPAP at night - albuterol, ipratropium med nebs # hypertension - resume home meds # iron-deficiency anemia - continue home meds # nicotine abuse disorder - patient counseled on cessation of smoking for 18 minutes #Grade I obesity BMI 33.7 - patient counseled on diet, exercise, lifestyle modifications for 18 minutes PPI prophylaxis: Protonix DVT prophylaxis: Lovenox Goals of care addressed with the patient for more than 27 minutes: Full code status Case discussed with Dr. Jose , patient and nurse Plan discussed with: Patient My Orders My Orders Orders - TASHA GOODE Procedure Category Date Status Time * Cardiology Consult CONS 07/24/25 Transmitted 15:49 Nm Vq Scan NM 07/25/25 Logged 04:00 Ct Ab Pel Wo Con-No CT 07/25/25 Resulted Oral Or Iv 07:00 Patients Own PHA 07/25/25 In Process Medication 15:00 Visit Coding STANDARD RES Billing Provider: SAL JOSE MD Date of Service if different f: Jul 25, 2025 Common Visit Codes: [id number] INP/OBS CARE(HIGH) TASHA GOODE RESIDENT Jul 25, 2025 14:58
[2025-07-26] VITALS (14 sets, daily range): BP systolic 123–167; BP diastolic 96–99; PULSE 71–96; RESP 14–18; TEMP 98–98.4; O2SAT 94–100
[2025-07-26 06:04] LABS: Hematocrit 33.4 % (41.0-53.0); Hemoglobin 10.8 g/dL (13.5-17.5); Mean Corpuscular Hemoglobin 28.2 pg (28.0-32.0); Mean Corpuscular Volume 87.1 fL (80.0-100.0); Nucleated Red Blood Cells % 0.1 %
[2025-07-26 06:14] LABS: Potassium 4.7 mmol/L (3.5-5.1); Sodium 144 mmol/L (136-145)
[2025-07-26 06:15] LABS: Anion Gap 5 (5-15); Carbon Dioxide 31 mmol/L (20-31)
[2025-07-26 06:16] LABS: Calcium 8.9 mg/dL (8.7-10.4)
[2025-07-26 06:20] LABS: Glucose 94 mg/dL (74-106)
[2025-07-26 06:21] LABS: BUN/Creatinine Ratio 11.9 (10.0-20.0)
[2025-07-26 06:23] LABS: Blood Urea Nitrogen 29 mg/dL (9-23); Chloride 108 mmol/L (98-107)
[2025-07-26] MEDS: AZITHROMYCIN 250 MG TAB PO SCH (09:36)
--- NOTE | 2025-07-26 14:14 | ECG ---
[facility] Test Date: 2025-07-23 Test Time: 08:46:17 Pat Name: SKYE POND Department: Room: 0287T A Gender: M Core Dipper: gp : 1960 Requested By: ZACHARY CAMARENA Order Number: [id number] Reading MD: Otf Chambers Measurements Intervals [place] Rate: 55 P: 154 MA: 179 QRS: 67 QRSD: 124 T: 142 QT: 424 QTc: 406 Interpretive Statements Sinus or ectopic atrial rhythm Nonspecific intraventricular conduction delay Abnormal T, consider ischemia, lateral leads Borderline ST elevation, anterior leads Baseline wander in lead(s) V2 Electronically Signed On 07-28-2025 19:05:13 PST by Otf Chambers Please click the below link to view image of tracing.
--- NOTE | 2025-07-26 14:14 | ECG ---
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
--- NOTE | 2025-07-26 15:59 | DVHDSRES ---
Discharge Summary Date of Admission Resident Creating Document: TASHA GOODE Jul 23, 2025 at 13:18 Date of Discharge: Jul 26, 2025 Admitting Diagnosis #Acute chest pain likely unstable angina Labs/Diagnostic Data: Laboratory Results Test 07/26/25 04:53 07/25/25 02:52 07/24/25 08:29 07/24/25 05:47 White Blood Count 10.5 10^3/uL (4.4-10.8) Red Blood Count 3.84 10^6/uL (4.5-5.90) Hemoglobin 10.8 g/dL (13.5-17.5) Hematocrit 33.4 % (41.0-53.0) Mean Corpuscular Volume 87.1 fL (80.0-100.0) Mean Corpuscular Hemoglobin 28.2 pg (28.0-32.0) Mean Corpuscular Hemoglobin Concent 32.4 g/dL (32.0-36.0) Red Cell Distribution Width 13.7 % (11.8-14.3) Platelet Count 290 10^3/uL (140-450) Mean Platelet Volume 7.6 fL (6.9-10.8) Neutrophils (%) (Auto) 79.4 % (37.0-80.0) Lymphocytes (%) (Auto) 12.1 % (10.0-50.0) Monocytes (%) (Auto) 8.0 % (0.0-12.0) Eosinophils (%) (Auto) 0.0 % (0.0-7.0) Basophils (%) (Auto) 0.5 % (0.0-2.0) Neutrophils # (Auto) 8.3 10 ^3/uL (1.6-8.6) Lymphocytes # (Auto) 1.3 10 ^3/uL (0.4-5.4) Monocytes # (Auto) 0.8 10 ^3/uL (0-1.3) Eosinophils # (Auto) 0 10 ^3/uL (0-0.8) Basophils # (Auto) 0 10 ^3/uL (0-0.2) Nucleated Red Blood Cells 0.1 % Sodium Level 144 mmol/L (136-145) Potassium Level 4.7 mmol/L (3.5-5.1) Chloride Level 108 mmol/L (98-107) Carbon Dioxide Level 31 mmol/L (20-31) Anion Gap 5 (5-15) Blood Urea Nitrogen 29 mg/dL (9-23) Creatinine 2.44 mg/dL (0.700-1.30) Glomerular Filtration Rate Calc 29 mL/min (>90) BUN/Creatinine Ratio 11.9 (10.0-20.0) Serum Glucose 94 mg/dL (74-106) Calcium Level 8.9 mg/dL (8.7-10.4) Total Bilirubin 0.3 mg/dL (0.2-1.0) Aspartate Amino Transferase (AST) 14 U/L (13-40) Alanine Aminotransferase (ALT) 18 U/L (7-40) Alkaline Phosphatase 83 U/L (46-116) Total Protein 6.6 g/dL (5.7-8.2) Albumin 3.9 g/dL (3.2-4.8) POC Glucose 131 mg/dl (70-106) Erythrocyte Sedimentation Rate 30 mm/hr (0-20) Phosphorus Level 3.7 mg/dL (2.4-5.1) Iron Level 36 ug/dL (65-175) Total Iron Binding Capacity 271 ug/dL (250-425) Percent Iron Saturation 13.3 % (20-55) Ferritin 67.0 ng/mL (22-322) C-Reactive Protein High Sensitivity 1.14 mg/dL (<1.0) Vitamin D 25-Hydroxy 73.6 ng/mL (30.0-100) Test 07/24/25 05:41 07/24/25 00:00 07/23/25 13:20 07/23/25 11:04 Influenza Type A Antigen Negative (Negative) Influenza Type B Antigen Negative (Negative) SARS-CoV-2 Antigen (Rapid) Negative (NEGATIVE) Troponin I High Sensitivity 14 ng/L (</=54) Urine Color Colorless (Yellow) Urine Clarity Clear (Clear) Urine pH 5.0 (5.0-9.0) Urine Specific [place] 1.005 (1.001-1.035) Urine Protein Negative (Negative) Urine Ketones Negative (Negative) Urine Blood Negative /uL (Negative) Urine Nitrite Negative (Negative) Urine Bilirubin Negative (Negative) Urine Urobilinogen Normal mg/dL (Negative) Urine Leukocyte Esterase Negative /uL (Negative) Urine RBC <1 /hpf (0 - 3) Urine Microscopic WBC < 1 /HPF (0-3) Urine Squamous Epithelial Cells None seen /hpf (<5) Urine Bacteria None seen /hpf (None Seen) Urine Glucose Normal mg/dL (Normal) Test 07/23/25 08:40 B-Type Natriuretic Peptide 48.86 pg/mL (0-100) Other Laboratory Tests 07/26/25 04:53 Brief Hx & Hospital Course: Patient is a 65-year-old male with past medical history of polycystic kidney disease, CKD stage 4, COPD/asthma who uses 4 L oxygen at home, hypertension, CHF, obstructive sleep apnea on CPAP, allergic rhinitis, internal hemorrhoids who came to the hospital with chief complaints of chest pain which was 10/10 in intensity, substernal, intermittent , nonradiating, states that increased with walking and decreased with rest, which woke him up from sleep yesterday. patient also describes pleuritic features with the pain worsening on deep inspiration. Patient also states he had recent flu-like illness with chest discomfort and was seen in [facility] 1 week ago where he was prescribed steroids. He denies any previous cardiac exam, cardiology workup. surgical history: Denies Family history: Family history of hypertension, diabetes, [place], heart failure, PSKD in family personal history: Patient states his last cigarette was 2 weeks ago and smoked 1 pack per day since 20 years. , occasional alcohol drinker, denies other drug use. Lives with: Zakiya PCP: Dr. Dillard Nephrology: Follows Dr. Pro Medications: Clonidine, Hydralazine, Amlodipine, Losartan, Simvastatin, Duloxetine, Advair 250/50 Diskus, Albuterol sulfate, Ipratropium, Matzim LA (diltiazem) 360 mg, Vitamin D 50,000 unit cap, Docusate, Feosol. 325. Brief hospital course: Patient came with chief complaints of chest pain which was mostly pleuritic in nature. Patient has negative tropes, EKG was unremarkable, echo ordered and showed Hyperdynamic left ventricular systolic function with estimated ejection fraction>70%. There is a LV hypertrophy. cardiology consulted. patient had acute on chronic hypoxic respiratory failure. And likely COPD exacerbation. Patient was started on albuterol, ipratropium med nebs, oxygen as needed, COVID, influenza were negative, sputum culture was negative. Patient was given IV azithromycin, and prednisone 40 mg p.o. daily. Patient has history of polycystic kidney disease and CKD stage 4. meds were resumed, strict I and O were maintained. CT abdomen showed Stable mild prominence of the left ureter with no obstructing stone or other lesion seen. patient does not complain of chest pain with inspiration. patient has history of obstructive sleep apnea and is on CPAP at night. Uses 2 L nasal oxygen at home. History of COPD, asthma. Patient has iron deficiency anemia for which home meds were continued. Patient has grade 1 obesity with BMI of 33.7 and patient was counseled on cessation of smoking for greater than 18 minutes and lifestyle modifications and diet, exercise for 18 minutes. Patient denies any chest pain or shortness of breath at discharge patient is stable for discharge and has communicated understanding of his discharge plan and has agreed. Patient is to follow-up with discharge Clinic in 1 week. General: Patient alert and oriented in person, place and time. Patient following commands. HEENT: Normocephalic, atraumatic, moist mucous membranes Respiratory/pulmonary: pleuritic chest pain with deep inspiration Cardiovascular: Normal heart sounds S1 and S2 with no associated murmurs Abdomen: Back tenderness. Extremities: There is no peripheral edema present at the lower extremities. Peripheral Pulses: 3+ Radial (R). 3+ Radial (L). 3+ Dorsalis pedis (R). 3+ Dorsalis pedis(L) Skin: No rashes or pruritus, there is no sacral edema present at this time. Neurological: Intact cranial nerves with no focal neurologic deficits Operations or Procedures ORDERING PHYSICIAN: TASHA GOODE RESIDENT PROCEDURE(s): ABPL - CT AB PEL WO CON-NO ORAL OR IV REASON: r/o renal stones ORDER NUMBER(s): [id number], ACCESSION NUMBER(s): [id number] Exam: CT CT AB PEL WO CON-NO ORAL OR IV History: r/o renal stones. Pain. Comparison Study: CT ABDOMEN PELVIS WITHOUT on DOS: 11/10/23, CT ABD PELVIS WO CONTRAST on DOS: 08/16/22, CT CHEST ABD PELVIS WO CONTRAS on DOS: 04/21/21 Technique: Multidetector spiral CT of the abdomen was performed from lung bases to pubic symphysis. Imaging was performed without IV contrast. Axial, coronal and sagittal multiplanar reformats were obtained from the axial data set by the technologist. Radiation Dose : 1. Abdomen/Pelvis: CTDIvol 26.09 mGy, DLP 1617.87 mGy*cm. Findings: Evaluation of solid organs is limited due to lack of intravenous contrast use. Lung Bases: No acute or significant lung base finding. Normal heart size. No pleural or pericardial effusion. Liver: The liver is normal in size. No focal lesions. Gallbladder and Biliary Tree: Unremarkable Spleen: Unremarkable Pancreas: The pancreas is grossly normal in appearance. Adrenal Glands: Unremarkable Kidneys: Bilateral renal cortical cysts. No stones. Left ureter is mildly dilated with no obstructing calculus seen. This appears unchanged. Bladder: Grossly unremarkable for degree of distention. Bowel: The stomach is grossly normal in appearance. Small bowel and colon are normal in caliber and distribution. The appendix is not visualized; however, no secondary findings of acute appendicitis identified. Ascites: Absent Lymphadenopathy: No mesenteric, retroperitoneal or periportal lymphadenopathy. Abdominal Wall and Mesentery: Unremarkable. Vasculature: The visualized abdominal aorta is normal in size and caliber. Evaluation of abdominal and pelvic vessels is limited due to lack of intravenous contrast. Pelvic Organs: Unremarkable Musculoskeletal: No aggressive focal bony lesions, acute fractures or dislocation. IMPRESSION: Stable mild prominence of the left ureter with no obstructing stone or other lesion seen. Radiation optimization: All CT scans at this facility use at least one of these dose optimization techniques: automated exposure control mA and/or kV adjustment per patient size (includes targeted exams where dose is matched to clinical indication) or iterative reconstruction. ATED BY: JONATAN SANTILLAN MD DICTATED DATE/TIME: 07/25/25 1100 SIGNED BY: JONAATN SANTILLAN MD SIGNED DATE/TIME: 07/25/25 1100 CC: Condition at Discharge: Stable Final Diagnosis/Problems List #Acute chest pain likely unstable angina #Acute on chronic hypoxic respiratory failure: #Likely COPD exacerbation: #Community acquired pneumonia likely Gram-positive, Gram-negative # Polycystic kidney disease # CKD stage IIIB/IV # ROBERTA on CPAP # history of COPD /asthma # hypertension # iron-deficiency anemia # nicotine abuse disorder #Grade I obesity BMI 33.7 Discharge Disposition: Home Discharge Instruct/Medications Diet: Cardiac 2g Na,low cholest Activity: No Restrictions, As Tolerated Follow Up/Referral: Follow-up Discharge Clinic in 1 week Medications: As per EMR Scheduled Amlodipine Besylate (Amlodipine Besylate), 1 TAB PO DAILY, (Reported) Cholecalciferol (Vitamin D3), 2,000 UNIT PO DAILY, (Reported) Clonidine Hydrochloride (Clonidine Hcl), 0.1 MG PO BID, (Reported) Diltiazem HCl (Matzim LA), 360 MG PO DAILY, (Reported) Fluoxetine Hcl (Fluoxetine Hcl), 10 MG PO DAILY, (Reported) Hydralazine Hcl (Hydralazine Hcl), 2 TAB PO TID, (Reported) Ipratropium-Albuterol (Ipratropium [place]/Albut), 1 IVETH IN QID, (Reported) Losartan Potassium (Losartan Potassium), 1 TAB PO DAILY, (Reported) Scheduled PRN Docusate Sodium (Docusate Sodium), 1 CAP PO BIDPRN PRN for FOR CONSTIPATION, (Reported) Miscellaneous Medications Lisinopril (Lisinopril), 10 MG PO, (Reported) Patients Own Medication (Patients Own Medication), (Reported) Simvastatin (Simvastatin), 1 TAB PO, (Reported) Discontinued Medications Ergocalciferol (Vitamin D), 1 CAP PO QWEEKLY, (Reported) Discharge Statement: "Patient was advised to return to the ER or call 911 if any headaches, dizziness, shortness of breath, chest pain, abdominal pain, bleeding, fevers, or worsening of medical condition. Patient was counseled about treatment plan, medications, possible side effects, patientverbalized understanding. All questions were answered to the best of my ability. This discharge took greater then 30 minutes in planning, reviewing documentation, counseling the patient, and discussing with other team members." ASSESSMENT ASSESSMENT Assessment Acute on chronic respiratory failure Visit Coding STANDARD RES Billing Provider: SAL LEWIS MD Date of Service if different f: Jul 26, 2025 Common Visit Codes: [id number] INP/OBS CARE(HIGH), 55665-UMO/OBS DISCH DAY >30min TASHA GOODE RESIDENT Jul 26, 2025 15:59
[2025-07-26] MEDS ORDERED: PRED20TA2 PO (16:11)
[2025-07-26] MEDS ORDERED: AZIT-43 PO (16:11)
== END 2025-07-26 19:30 | disposition home or self-care (01) | DRG 198 ==
LOC: ER 08:34 → OVERFLOW 13:18 → TELE-WESTW 23:54
PROVIDERS: ADMIT Student in an Organized Health Care Education/Training Program; ATTEND Student in an Organized Health Care Education/Training Program
DX: I20.0 Unstable angina (principal); J96.21 Acute and chronic respiratory failure with hypoxia; J15.69 Pneumonia due to other Gram-negative bacteria; J15.9 Unspecified bacterial pneumonia; I13.0 Hypertensive heart and chronic kidney disease with heart failure and stage 1 through stage 4 chronic kidney disease, or unspecified chronic kidney disease; J44.1 Chronic obstructive pulmonary disease with (acute) exacerbation; I50.9 Heart failure, unspecified; D50.9 Iron deficiency anemia, unspecified; F17.210 Nicotine dependence, cigarettes, uncomplicated; N18.4 Chronic kidney disease, stage 4 (severe); E66.811 Obesity, class 1; Q61.3 Polycystic kidney, unspecified; J45.909 Unspecified asthma, uncomplicated; E78.5 Hyperlipidemia, unspecified; Z20.822 Contact with and (suspected) exposure to COVID-19; Z68.33 Body mass index [BMI] 33.0-33.9, adult; G47.33 Obstructive sleep apnea (adult) (pediatric); Z79.899 Other long term (current) drug therapy; Z99.81 Dependence on supplemental oxygen; Z83.3 Family history of diabetes mellitus; Z82.49 Family history of ischemic heart disease and other diseases of the circulatory system; Z87.19 Personal history of other diseases of the digestive system
CPT/HCPCS: 36415; 71046; 74176; 80048; 80053; 81001; 82306; 82728; 82962; 83540; 83550; 83880; 84100; 84132; 84484; 85025; 85652; 86141; 87070; 87205; 87426; 87804; 92610; 93005; 93306; 94640; 97163; G0378; J1100; J1815; J2405